=== PATIENT | female | born 1995 | race Caucasian/White ===

== ENCOUNTER 2017-03-31 11:07 | Emergency (ER) | payer OTHER ==
[~2017-03-31] VITALS: Ht 160 cm; Wt 65.0 kg
[2017-03-31 11:10] VITALS: Ht 160 cm; Wt 65.0 kg
[2017-03-31] MEDS ORDERED: ONDANSETRON (ODT) 4 MG TAB ODT STA (11:33)
--- NOTE | 2017-03-31 11:44 | ERD ---
ER Documentation Chief Complaint Date/Time DATE: 03/31/17 TIME: 11:29 Chief Complaint pt bib self with c/o fever and aches and pains since yesterday HPI 21-year-old female who presents to the emergency department for fever and vomiting since yesterday. Stated that she vomited with food particle vomitus about 4 times in the past 24 hours. Reports that she felt like she had a fever yesterday but never took her temperature. Denies headache, loss of consciousness, dizziness, blurry vision, changes in vision, photophobia, facial pain, ear pain, throat pain, difficulty swallowing, neck pain, shoulder pain, chest pain, cough, hemoptysis, abdominal pain, back pain, loss of appetite, nausea, changes in her diet, hematochezia, diarrhea, constipation, urinary symptoms, , the possibility of being , bladder and bowel incontinences, extremity weakness, extremity tenderness, numbness or tingling sensation, difficulty walking, recent travel, recent exposure to illness, recent antibiotic use in the last 3 months, fever, chills. Allergy: No known drug allergies. PMH: No past medical history. Family medical history: Denies. AO LMP: March 05, 2017. Medications: Denies. Surgery: Denies. 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 Denies smoking, use of alcohol, use of illegal drugs. Not exposed to secondhand smoking. ROS All systems reviewed and are negative except as per history of present illness. Allergies Allergies: Coded Allergies: No Known Allergy (Unverified , 03/31/17) PMhx/Soc Medical and Surgical Hx: pt denies Medical Hx, pt denies Surgical Hx History of Surgery: No Anesthesia Reaction: No Hx Neurological Disorder: No Hx Respiratory Disorders: No Hx Cardiac Disorders: No Hx Psychiatric Problems: No Hx Miscellaneous Medical Probl: No Hx Alcohol Use: No Hx Substance Use: No Hx Tobacco Use: No Smoking Status: Never smoker Physical Exam Vitals Vital Signs Date Time Temp Pulse Resp B/P Pulse Ox O2 Delivery O2 Flow Rate FiO2 03/31/17 11:10 98.8 62 16 120/59 100 Physical Exam CONSTITUTIONAL: Well-appearing; well-nourished; in no apparent distress. HEAD: Normocephalic; atraumatic. EYES: Conjunctiva clear, sclera non-icteric, EOM intact. PERRL Ears: Hearing intact. EACs clear, TMs non-bulging, non-inflamed, translucent & mobile, ossicles normal appearance, No obstructions, no erythema, no discharges Nose: No obstructions. No polyps. No external lesions. Mucosa non-inflamed. No external lesions, septum and turbinates normal. No rhinorrhea. No discharges. Frontal sinus is non-tender to palpation. Maxillary sinus is non-tender to palpation. MOUTH: Moist mucous membranes, no lesion, no obstructions, no vesicles, no thrush, patent airway Throat: Uvula in midline. Right tonsil is +1 with no erythema, no exudate. Left tonsil is +1 with no erythema, no exudate. Tolerating secretions well. Good gag reflex. Patent airway. Neck: Supple, without lesions, bruits, or adenopathy. No mass. Thyroid non- enlarged and non-tender to palpation. CHEST: Symmetrical chest. Respirations even and not labored. No retractions noted. CARDIOVASCULAR: Normal S1, S2. RRR. No murmurs, gallops. RESPIRATORY: Normal chest excursion with respiration; breath sounds clear and equal bilaterally; no wheezes, rhonchi, or rales. Breathing even and unlabored. Speaking in clear, full, and complete sentences w/ ease. ABDOMEN: Normal bowel sounds normal. Soft, round, non-distended, non-guarding, no tenderness, no rebound, no organomegaly, no masses, no pulsating abdominal mass. There is no right upper/left lower/epigastric/left upper/left lower abdominal tenderness on light and deep palpation. Negative on Rovsing's sign. Negative on Naz sign. No hernia. No peritoneal signs. Able to jump 15 times without developing right-sided abdominal pain. Able to run without developing abdominal pain. : No CVA tenderness. BACK: Symmetrical shoulder. Spine is midline without deformity, tenderness. No evidence of trauma or deformity. PELVIS: Stable pelvis. No evidence of trauma or deformity. MUSCULOSKELETAL: Normal gait and station. No misalignment, asymmetry, crepitation, defects, tenderness, masses, effusions, decreased range of motion, instability, atrophy or abnormal strength or tone in the head, neck, spine, ribs , pelvis or extremities. No calf tenderness. NEUROVASCULAR: Distal pulses are present. Pedal pulse are present, equal, and normal. Capillary refills are < 2 seconds. NEUROLOGIC: Alert and oriented x4. Speaks full and clear sentences. Cranial Nerves II-XII normal. Sensation to pain, touch, and proprioception normal. Grossly unremarkable. No neurologic deficits. Romberg test is negative. PSYCHOLOGICAL: The patients mood and manner are appropriate. No hallucinations , delusions. Not SI. Not HI. Has the capacity to decide for self SKIN: Normal for age and ethnicity; warm; dry; good turgor; no apparent lesions or exudates. No rashes, hives, discoloration. Intact. Results 24 hrs Laboratory Tests Test 03/31/17 12:00 Urine Color LT. YELLOW Urine Clarity CLEAR Urine pH 7.0 Urine Specific [place] 1.015 Urine Ketones NEGATIVE Urine Nitrite NEGATIVE Urine Bilirubin NEGATIVE Urine Urobilinogen 0.2 E.U./dL Urine Leukocyte Esterase NEGATIVE Urine Hemoglobin NEGATIVE Urine Glucose NEGATIVE% Urine Total Protein NEGATIVE Current Medications Medications (Trade) Dose Ordered Sig/David Route PRN Reason Start Time Stop Time Status Last Admin Dose Admin Ondansetron HCl (Zofran Odt) 4 mg ONCE STAT ODT 03/31/17 11:33 03/31/17 11:35 DC 03/31/17 12:02 Procedures/MDM Examination: Please see physical examination. Disease process, medical treatment was explained to the patient and family member. They verbalized understanding and agreed with the diagnostic tests, medical treatment, and follow-up care. POC urine : Negative. Urinalysis: Reviewed. Culture urine: Awaiting for results. Treatment: Zofran ODT. P.o. challenge. Re-evaluation: Denies headache, dizziness, blurry vision, changes in vision, throat pain, throat tightness, difficulty swallowing, neck pain, shoulder pain, chest pain, back pain, epigastric pain, active bleeding, nausea, vomiting. Patient is able to tolerate one cup of water without vomiting. No episode of emesis here in the emergency department. There is no right upper/right lower/ epigastric/left upper/left lower abdominal tenderness on light and deep palpation. Negative on Rovsing's sign. Negative [place] sign. No peritoneal signs. Able to jump 10 times (reexamination) Without developing abdominal pain. No CVA tenderness. No neurological deficits. No neurovascular deficits. Consultation: None. Differential diagnosis: Appendicitis versus cholecystitis versus pancreatitis versus gastroenteritis versus gastritis versus urinary tract infection. Medical decision makin-year-old female who presents to the emergency department for fever and vomiting since yesterday. Stated that she vomited with food particle vomitus about 4 times in the past 24 hours. Reports that she felt like she had a fever yesterday but never took her temperature. Patient 's complaint, patient's history about her complaint, my physical findings, diagnostic test results, my reevaluation are consistent with my final diagnosis of vomiting, gastritis, gastroenteritis, viral syndrome. Medications prescribed are the following: Zofran. Pepcid. Patient and family member are made aware of the side effects and adverse reactions of the medications prescribed. Instructed on when to seek emergent and medical attention in case allergic/anaphylactic reactions or severe side effects and or adverse reactions to medications. Patient and family member verbalized understanding. Patient instructed Instructed to follow-up with his PCP in 24-48 hours. Instructed to Call 911 for chest pain, shortness of breath. Advised to come back here in ED as soon as possible for severity of symptoms which includes but not limited to: any new symptoms; shortness of breath/difficulty of breathing; cardiovascular changes; severe gastrointestinal symptoms; signs and symptoms of bleeding and or infection; signs of compartment syndrome/neurovascular changes; neurological changes/deficits. Patient and family member verbalized understanding. Upon discharge, patient is alert and oriented x 4, speaks full and clear sentences, denies pain, has no neurological deficits, has no neurovascular deficits, difficulty of breathing. Breathing even and unlabored. Lung sounds are clear to auscultation. Not in distress. Appears comfortable. Ambulatory with steady gait. Appears satisfied with care provided here in ED. Departure Diagnosis: Primary Impression: Fever Additional Impressions: Viral syndrome Gastroenteritis Gastritis Condition: Good Additional Instructions: Patient instructed Instructed to follow-up with his PCP in 24-48 hours. Instructed to Call 911 for chest pain, shortness of breath. Advised to come back here in ED as soon as possible for severity of symptoms which includes but not limited to: any new symptoms; shortness of breath/difficulty of breathing; cardiovascular changes; severe gastrointestinal symptoms; signs and symptoms of bleeding and or infection; signs of compartment syndrome/neurovascular changes; neurological changes/deficits. Patient and family member verbalized understanding. HERNAN DEUTSCH March 31, 2017 11:44
[2017-03-31 13:00] LABS: ADD UMIC NO; URINE BILIRUBIN (Dip) NEGATIVE (NEGATIVE); URINE BLOOD (Dip) NEGATIVE (NEGATIVE); URINE COLOR LT. YELLOW (YELLOW); URINE GLUCOSE (Dip) NEGATIVE (NEGATIVE); URINE KETONES (Dip) NEGATIVE (NEGATIVE); URINE LEUKOCYTE ESTERASE (Dip) NEGATIVE (NEGATIVE); URINE NITRITE (Dip) NEGATIVE (NEGATIVE); URINE TOTAL PROTEIN (Dip) NEGATIVE (NEGATIVE); URINE UROBILINOGEN (Dip) 0.2 E.U./dL (0.1-1.0)
[2017-03-31] MEDS ORDERED: ACET500C5 PO (13:16)
[2017-03-31] MEDS ORDERED: ONDA4TAB14 PO (13:16)
[2017-03-31] MEDS ORDERED: FAMO-18 PO (13:16)
== END 2017-03-31 13:58 | disposition home or self-care (01) ==
LOC: FTE 11:07
DX: R50.9 Fever, unspecified (principal); K29.70 Gastritis, unspecified, without bleeding; B34.9 Viral infection, unspecified; K52.9 Noninfective gastroenteritis and colitis, unspecified
CPT/HCPCS: 81003; 87086; Z7502; Z7610; 99283